=== PATIENT | female | born 1970 | race Caucasian/White ===

== ENCOUNTER → 2017-07-24 | Outpatient (CLI) | payer OTHER ==
[~2017-07-24] MED LIST: ACET50TA PO; ANUS2.5C2 TOP; COLA100C5 PO; DIBU10OI TOP; IBUP80TA PO; VITAPRTA PO
--- NOTE | 2017-07-24 16:06 | REPMRS ---
Patient History The patient states she has not had a clinical breast exam in over a year. Benign radio exam breast specimen of the left breast, January 14, 2016. Benign stereotatic loc for ea lesion of the left breast, January 14, 2016. Digital Mammo Screening Bilat: July 24, 2017 - Exam #: [id number] Bilateral CC and MLO view(s) were taken. Technologist: Tiffanie Ojeda, Technologist Prior study comparison: December 28, 2015, digital bilateral screening mammo, performed at [facility]. November 13, 2014, digital bilateral screening mammo, performed at [facility]. FINDINGS: The breast tissue is heterogeneously dense. This may lower the sensitivity of mammography. There is a needle biopsy marker clip in the right breast. There is a moderate amount of heterogeneously dense fibroglandular tissue which is fairly symmetric. There is no interval development of dominant mass, architectural distortion, or clustered microcalcification typical of malignancy. There has been no change in the appearance of the mammogram from the prior studies. ASSESSMENT: BI-RADS/ACR category 2 mammogram. Benign finding(s). Recommendation Routine screening mammogram of both breasts in 1 year (for women over age 40). This mammogram was interpreted with the aid of an FDA-approved computer-aided dectection system. Electronically Signed By: Philip Toscano MD 07/24/17 1111
== END ==
LOC: M RAD 14:25
PROVIDERS: ATTEND Physician Assistant Medical
DX: Z12.31 Encounter for screening mammogram for malignant neoplasm of breast (principal); Z92.89 Personal history of other medical treatment

== ENCOUNTER → 2018-08-09 | Outpatient (CLI) | payer OTHER | LOC: M RAD 09:01 | DX: Z12.31 Encounter for screening mammogram for malignant neoplasm of breast (principal) | CPT/HCPCS: 77067 ==

== ENCOUNTER → 2019-02-22 | Outpatient (CLI) | payer OTHER ==
[~2019-02-22] MED LIST changes: -ACET50TA PO; +MAPA500T2 PO; +PROHANCE 279.3MG/ML 15ML VIAL (A9576) As Ordered ONE; +PROHANCE 279.3MG/ML 5ML VIAL (A9576) As Ordered ONE
--- NOTE | 2019-02-22 13:27 | REP ---
MRI BILATERAL BREASTS WITH AND WITHOUT CONTRAST: HISTORY: Dense breasts. History of breast cancer in maternal aunt at age 45. Tyrer-Cuzick lifetime risk of breast cancer 21.5%. Multiple sequences obtained in the axial, coronal, and sagittal planes prior to and following the intravenous administration of 13.6 mL ProHance. Images are evaluated in the [employer]ori software including dynamic post IV gadolinium axial T1 fat sat images, subtraction images, CAD imaging with color overlay and MIP images. Moderate amount of fibroglandular tissue is seen bilaterally. There is mild to moderate background parenchymal enhancement. No suspicious enhancing mass is seen. No morphologic abnormality is seen. I see no axillary adenopathy. Multiple subcentimeter cysts are seen throughout both breasts, more so on the left than on the right. There are mildly dilated ducts in both retroareolar regions. 4 mm nodule in the outer left breast demonstrates enhancement with a washout pattern, type 3. This appears oval and fairly well defined and probably represents a tiny intramammary lymph node. IMPRESSION: BI-RADS category 2 benign bilateral breast MRI. No suspicious enhancing mass or morphologic abnormality. Multiple tiny cysts are seen bilaterally more so on the left. In addition there is a 4 mm nodule in the lateral left breast which is hyperintense on T2 and demonstrates washout enhancement probably representing a 4 mm intramammary lymph node. Yearly screening supplemental MRI of the breasts is recommended for patient's with Tyrer-Cuzick lifetime risk of breast cancer over 20%. Electronically Signed by Jenaro Shay MD 02/27/2019 11:41 A
== END ==
LOC: M RAD 08:22
PROVIDERS: ATTEND Family Medicine
DX: Z12.31 Encounter for screening mammogram for malignant neoplasm of breast (principal); Z80.3 Family history of malignant neoplasm of breast
CPT/HCPCS: A9576; C8908

== ENCOUNTER → 2019-09-09 | Outpatient (CLI) | payer OTHER ==
[~2019-09-09] MED LIST changes: -PROHANCE 279.3MG/ML 15ML VIAL (A9576) As Ordered ONE; -PROHANCE 279.3MG/ML 5ML VIAL (A9576) As Ordered ONE
--- NOTE | 2019-09-09 09:29 | REPMRS ---
Patient History The patient states she has not had a clinical breast exam in over a year. Family history of ovarian cancer at age 59 in maternal aunt, breast cancer at age 45 in maternal aunt. Benign radio exam breast specimen of the left breast, January 14, 2016. Benign stereotatic loc for ea lesion of the left breast, January 14, 2016. Digital Mammo Screening Bilat: September 09, 2019 - Exam #: [id number] Bilateral CC and MLO view(s) were taken. Technologist: Bibi Dior, Technologist Prior study comparison: August 09, 2018, bilateral digital mammo screening bilat performed at [facility]. July 24, 2017, bilateral digital mammo screening bilat performed at [facility]. FINDINGS: The breast tissue is heterogeneously dense. This may lower the sensitivity of mammography. There has been no change in the appearance of the mammogram from the prior studies. There is a moderate amount of residual fibroglandular tissue which is fairly symmetric. There is no interval development of dominant mass, areas of architectural distortion, or clustered microcalcification typical of malignancy. Assessment: BI-RADS/ACR category 1 mammogram. Negative Mammogram. Recommendation Routine screening mammogram in 1 year (for women over age 40). This mammogram was interpreted with the aid of an FDA-approved computer-aided dectection system. THE LIFETIME RISK OF BREAST CANCER IS 21.2%, THEREFORE SUPPLEMENTAL SCREENING MRI OF THE BREASTS IS RECOMMENDED IN 6 MONTHS. Electronically Signed By: Jenaro Shay MD 09/09/19 0929
== END ==
LOC: M RAD 08:38
PROVIDERS: ATTEND Family Medicine
DX: N63.20 Unspecified lump in the left breast, unspecified quadrant (principal)

== ENCOUNTER → 2020-09-21 | Outpatient (CLI) | payer OTHER ==
--- NOTE | 2020-09-21 10:05 | REPMRS ---
Patient History The patient states she has not had a clinical breast exam in over a year. Patient had first child at age 40. Family history of ovarian cancer at age 59 in maternal aunt, breast cancer at age 45 in maternal aunt. Benign radio exam breast specimen of the left breast, January 14, 2016. Benign stereotatic loc for ea lesion of the left breast, January 14, 2016. Digital Woman Screen Mammo: September 21, 2020 - Exam #: [id number] Bilateral CC and MLO view(s) were taken. Technologist: Alyssa Oliver, Technologist Prior study comparison: September 09, 2019, bilateral digital mammo screening bilat, performed at [facility]. August 09, 2018, bilateral digital mammo screening bilat, performed at [facility]. July 24, 2017, bilateral digital mammo screening bilat, performed at [facility]. FINDINGS: There are scattered fibroglandular densities. The Volpara volumetric breast density category is:B. There is a needle biopsy marker clip in the left breast. There has been no change in the appearance of the mammogram from the prior studies. There is a mild amount of scattered fibroglandular density which is fairly symmetric. There is no interval development of dominant mass, architectural distortion, or grouped microcalcification suggestive of malignancy. 3-D tomosynthesis shows no additional findings. Assessment: BI-RADS/ACR category 2 mammogram. Benign Findings. Recommendation Breast MRI of both breasts in 6 months. Routine screening mammogram of both breasts in 1 year (for women over age 40). This patient's [facility] Lifetime Breast Cancer Risk is estimated at 20.8 %. Annual screening Breast MRI scanniing is recommended for patient's whose lifetime risk assessment is over 20%. This mammogram was interpreted with the aid of an FDA-approved computer-aided dectection system. Electronically Signed By: Philip Toscano MD 09/21/20 [id number]
== END ==
LOC: M WHC 09:15
PROVIDERS: ATTEND Family Medicine
DX: Z12.31 Encounter for screening mammogram for malignant neoplasm of breast (principal)

== ENCOUNTER → 2021-04-16 | Outpatient (CLI) | payer OTHER ==
[~2021-04-16] MED LIST changes: -DIBU10OI TOP; +DIBU28OI2 TOP; +PROHANCE 279.3MG/ML 15ML VIAL As Ordered ONE
--- NOTE | 2021-04-16 11:05 | REP ---
INDICATION: SCREENING, DENSE BREAST, CAT 2 MAMMO. COMPARISON: Comparison breast MRI study is from February 22, 2019. Comparison mammography September 21, 2020. TECHNIQUE: Three Val MRI imaging was performed with a dedicated breast coil. Axial, coronal, and sagittal T1 and T2 weighted scans were obtained with and without fat saturation in the usual fashion. The study includes dynamically acquired post gadolinium-enhanced imaging with image subtraction. Maximum intensity projection and multi planar reformation imaging is included as well. This study is interpreted with the aid of [employer], an FDA approved computer aided detection (CAD) software program, on a dedicated breast MRI workstation. The gadolinium enhancement dose is 13 mL of intravenous ProHance. FINDINGS: There is a marked amount of fibroglandular tissue bilaterally corresponding with the mammographic pattern. There is mild background parenchymal enhancement. There is no evidence of axillary lymphadenopathy or significant breast cystic change. High-resolution pre and post-contrast T1 and T2 weighted scans show no suspicious morphologic abnormality in either breast. Dynamically acquired sequential postcontrast images show no suspicious area of enhancement and washout kinetics in either breast to suggest malignancy. Subtraction images show no additional abnormality. Previously noted stable intramammary lymph node is noted on the left unchanged. There are some dilated ducts with inspissated proteinaceous fluid bilaterally, right greater than left also unchanged. There is a magnetic field susceptibility artifact in the anterior 3rd of the left breast laterally corresponding to the needle biopsy marker clip visible mammographically. IMPRESSION: BI-RADS category 2 benign bilateral breast MRI findings. <Electronically signed by Philip Toscano > 04/16/21 [id number]
== END ==
LOC: M RAD 08:27
PROVIDERS: ATTEND Family Medicine
DX: Z12.31 Encounter for screening mammogram for malignant neoplasm of breast (principal); Z98.890 Other specified postprocedural states
CPT/HCPCS: A9576; C8908

== ENCOUNTER → 2021-12-13 | Outpatient (CLI) | payer OTHER ==
[~2021-12-13] MED LIST changes: -PROHANCE 279.3MG/ML 15ML VIAL As Ordered ONE
== END ==
LOC: M WHC 09:23
PROVIDERS: ATTEND Family Medicine
DX: Z12.31 Encounter for screening mammogram for malignant neoplasm of breast (principal)

== ENCOUNTER → 2023-02-03 | Outpatient (CLI) | payer OTHER | LOC: M WHC 15:28 | PROVIDERS: ATTEND Nurse Practitioner Primary Care | DX: Z12.31 Encounter for screening mammogram for malignant neoplasm of breast (principal); R92.2 Inconclusive mammogram ==

== ENCOUNTER → 2023-02-15 | Outpatient (CLI) | payer OTHER | LOC: M WHC 08:32 | PROVIDERS: ATTEND Nurse Practitioner Primary Care | DX: R92.8 Other abnormal and inconclusive findings on diagnostic imaging of breast (principal) | CPT/HCPCS: 77065; G0279 ==

== ENCOUNTER → 2024-03-22 | Outpatient (CLI) | payer OTHER | LOC: M WHC 15:14 | PROVIDERS: ATTEND Nurse Practitioner Primary Care | DX: Z12.31 Encounter for screening mammogram for malignant neoplasm of breast (principal); R92.333 Mammographic heterogeneous density, bilateral breasts ==

== ENCOUNTER → 2025-04-16 | Outpatient (CLI) | payer OTHER | LOC: M WHC 10:58 | PROVIDERS: ATTEND Nurse Practitioner Primary Care | DX: Z12.31 Encounter for screening mammogram for malignant neoplasm of breast (principal); R92.333 Mammographic heterogeneous density, bilateral breasts ==